=== PATIENT | male | born 1970 | race African-American/Black ===

== ENCOUNTER 2024-05-08 10:01 | Emergency (ER) | payer OTHER ==
[~2024-05-08] VITALS: Ht 185.4 cm; Wt 72.7 kg
[~2024-05-08 10:01] MED LIST: QUET300T2 PO
[2024-05-08 10:05] VITALS: TEMP 98.1
[2024-05-08 10:44] LABS: BASOPHILS % (AUTO) 0.3 % (0.0-2.0); EOSINOPHILS % (AUTO) 0.2 % (1.0-6.0); HEMATOCRIT 44.6 % (41-53); HEMOGLOBIN 14.7 g/dL (13.5-17.5); LYMPHOCYTES # (AUTO) 1.4 K/uL (1.0-4.8); MEAN CORPUSCULAR HEMOGLOBIN 26.1 pg (26.0-34.0); MEAN CORPUSCULAR VOLUME 79 fL (80-100); MONOCYTES # (AUTO) 0.5 K/uL (0.1-1.0); MONOCYTES % (AUTO) 7.3 % (2.0-9.0); NEUTROPHILS # (AUTO) 4.9 K/uL (1.8-7.7); NEUTROPHILS % (AUTO) 72.2 % (40.0-70.0); PLATELET COUNT (AUTO) 144 K/uL (150-450); RED BLOOD CELL COUNT(AUTO) 5.63 MIL/uL (4.50-5.90); RED CELL DISTRIBUTION WIDTH 13.9 % (11.5-14.5); WHITE BLOOD COUNT (AUTO) 6.8 K/uL (4.5-11.0)
[2024-05-08 10:58] LABS: ALBUMIN 4.2 g/dL (3.4-5.0); BILIRUBIN,DIRECT 0.2 mg/dL (0.00-0.20); BILIRUBIN,TOTAL 0.9 mg/dL (0.1-1.0); CALCIUM, TOTAL 11.3 mg/dL (8.8-10.5); CREATININE 2.07 mg/dL (0.60-1.30); MAGNESIUM 2.6 mg/dL (1.80-2.40); POTASSIUM 4.4 mmol/L (3.5-5.1); TOTAL PROTEIN, SERUM 8.7 g/dL (6.4-8.2)
[2024-05-08 10:59] LABS: TROPONIN I-HIGH SENSITIVITY 20 ng/L (<76)
[2024-05-08] MEDS: BACITRACIN 28 GM OINTMENT TP ONE (11:14)
[2024-05-08] MEDS: SODIUM CHLORIDE 0.9% 1,000 ML IV ONE (11:14)
[2024-05-08] MEDS: ACETAMINOPHEN 500 MG TABLET PO ONE (11:14)
[2024-05-08] MEDS: AMIODARONE HCL 150 MG in DEXTROSE 5%-WATER 97 ML IV ONE (11:24)
[2024-05-08] MEDS: INSULIN REGULAR, HUMAN 100 UNITS/ML IVP ONE (11:24)
[2024-05-08] MEDS: AMIODARONE HCL 360 MG in DEXTROSE 5%-WATER 242.8 ML IV ONE (11:35)
[2024-05-08] MEDS: PERTUSS(ACELL),DIPH,TET/PF 0.5 ML SYRINGE [ADULT] IM. ONE (12:02)
[2024-05-08 12:15] LABS: PH,URINE DRUG SCREEN 5.5 (5.0-8.0)
[2024-05-08 12:21] LABS: ALCOHOL, URINE DRUG SCREEN NEGATIVE (NEGATIVE); AMPHET/METH SCREEN,URINE NEGATIVE (NEGATIVE); BARBITURATE SCREEN, URINE NEGATIVE (NEGATIVE); BENZODIAZEPINES SCREEN,URINE NEGATIVE (NEGATIVE); CANNABINOID SCREEN,URINE NEGATIVE (NEGATIVE); COCAINE SCREEN,URINE NEGATIVE (NEGATIVE); METHADONE SCREEN, URINE NEGATIVE (NEGATIVE); OPIATE SCREEN,URINE NEGATIVE (NEGATIVE); PHENCYCLIDINE SCREEN,URINE NEGATIVE (NEGATIVE)
[2024-05-08 12:55] LABS: GLUCOMETER DEV NAME(LOC) ERT.5; GLUCOSE,POINT OF CARE 415 MG/DL (70-110)
[2024-05-08 14:46] VITALS: BP 118/72; PULSE 84; RESP 16
[2024-05-08 14:53] LABS: CALCIUM, TOTAL 9.9 mg/dL (8.8-10.5); CREATININE 1.72 mg/dL (0.60-1.30); POTASSIUM 4.2 mmol/L (3.5-5.1)
[2024-05-08] MEDS ORDERED: AMIODARONE HCL 540 MG in DEXTROSE 5%-WATER 239.2 ML IV ONE (17:00)
[2024-05-09] MEDS ORDERED: AMIODARONE HCL 750 MG in DEXTROSE 5%-WATER 485 ML IV SCH (11:00)
== END 2024-05-08 15:20 | disposition left against medical advice (07) ==
LOC: EMS 11:23
DX: S01.01XA Laceration without foreign body of scalp, initial encounter (principal); R00.0 Tachycardia, unspecified; R73.9 Hyperglycemia, unspecified; R51.9 Headache, unspecified; Z79.899 Other long term (current) drug therapy; W22.8XXA Striking against or struck by other objects, initial encounter; Y93.89 Activity, other specified; Y92.89 Other specified places as the place of occurrence of the external cause; Y99.8 Other external cause status
CPT/HCPCS: 99291; 70450; 96365; 96375; 80048; 80076; 83930; 82009; 82962; 83735; 83880; 84484; 85025; 83935; 72125; 90715; 90471; 12004; 80307; 96368; 36415; 93005; G0480; J0282 ×2; J1815; J7060 ×2; J7030

== ENCOUNTER 2024-05-14 08:00 | Emergency (ER) | payer OTHER ==
[~2024-05-14] VITALS: Ht 182.9 cm; Wt 84.1 kg
[2024-05-14 08:02] VITALS: BP 105/54; PULSE 90; RESP 16; TEMP 98.2
[2024-05-14] MEDS ORDERED: AMLO5TAB66 PO (08:07)
[2024-05-14] MEDS ORDERED: MIRT45TA83 PO (08:07)
[2024-05-14] MEDS ORDERED: METF-446 PO (08:07)
[2024-05-14] MEDS ORDERED: DAPA10TA7 PO (08:07)
[2024-05-14] MEDS ORDERED: OLAN20TA35 PO (08:07)
[2024-05-14] MEDS ORDERED: ATOR40TA71 PO (08:07)
[2024-05-14] MEDS: INSULIN REGULAR, HUMAN 100 UNITS/ML IVP ONE (08:45)
[2024-05-14] MEDS: SODIUM CHLORIDE 0.9% 2,500 ML IV ONE (08:46)
[2024-05-14 09:08] LABS: BASOPHILS % (AUTO) 0.1 % (0.0-2.0); EOSINOPHILS % (AUTO) 0.1 % (1.0-6.0); HEMATOCRIT 46.2 % (41-53); HEMOGLOBIN 14.7 g/dL (13.5-17.5); LYMPHOCYTES # (AUTO) 0.9 K/uL (1.0-4.8); LYMPHOCYTES % (AUTO) 11.5 % (22.0-44.0); MEAN CORPUSCULAR HEMOGLOBIN 26.2 pg (26.0-34.0); MEAN CORPUSCULAR HGB CONC 31.9 G/dL (31.0-37.0); MEAN CORPUSCULAR VOLUME 82 fL (80-100); MONOCYTES # (AUTO) 0.6 K/uL (0.1-1.0); MONOCYTES % (AUTO) 7.9 % (2.0-9.0); NEUTROPHILS # (AUTO) 6.6 K/uL (1.8-7.7); NEUTROPHILS % (AUTO) 80.4 % (40.0-70.0); PLATELET COUNT (AUTO) 159 K/uL (150-450); RED BLOOD CELL COUNT(AUTO) 5.62 MIL/uL (4.50-5.90); RED CELL DISTRIBUTION WIDTH 14.1 % (11.5-14.5); WHITE BLOOD COUNT (AUTO) 8.2 K/uL (4.5-11.0)
[2024-05-14 09:20] LABS: APPEARANCE,URINE CLEAR (CLEAR); BILIRUBIN,URINE NEGATIVE (NEGATIVE); COLOR,URINE COLORLESS (YELLOW); GLUCOSE, URINE (UA) >=1000 mg/dL (NEGATIVE); KETONES,URINE 80-100 mg/dL (NEGATIVE); LEUKOCYTE ESTERASE ,URINE NEGATIVE (NEGATIVE); NITRATE,URINE NEGATIVE (NEGATIVE); OCCULT BLOOD,URINE NEGATIVE (NEGATIVE); PROTEIN,URINE NEGATIVE (NEGATIVE); UROBILINOGEN,URINE <=1.0 mg/dL (<=1.0)
[2024-05-14 09:21] LABS: BACTERIA,URINE None Seen /HPF (None Seen); RBC,URINE None Seen /HPF (0-2); WBC,URINE None Seen /HPF (0-5)
[2024-05-14 09:21] LABS: ACETONE,BLOOD 1:16 (NEGATIVE)
[2024-05-14 09:27] LABS: ANION GAP 35 mmol/L (8-16); CARBON DIOXIDE 11 mmol/L (22-29); CHLORIDE 101 mmol/L (98-107); CREATININE 3.12 mg/dL (0.60-1.30); GLOMERULAR FILTR. RATE CALC 25 mL/min (>60); LIPASE 72 U/L (16-77); SODIUM SERUM 147 mmol/L (136-145); UREA NITROGEN, BLOOD 57 mg/dL (7-18)
[2024-05-14 09:47] LABS: GLUCOSE,RANDOM 529 mg/dL (70-110)
[2024-05-14 09:48] LABS: CALCIUM, TOTAL 10.3 mg/dL (8.8-10.5); LACTIC ACID 4.1 mmol/L (0.4-2.0); POTASSIUM 6.1 mmol/L (3.5-5.1)
[2024-05-14] MEDS: SODIUM CHLORIDE 0.9% 1,000 ML IV ONE (09:48)
[2024-05-14] MEDS ORDERED: DEXTROSE 5%-WATER 1,000 ML IV SCH (10:00)
[2024-05-14] MEDS ORDERED: DEXTROSE 50%-WATER 25 GM/50 ML SYRINGE IVP PRN (10:00)
[2024-05-14] MEDS: INSULIN REGULAR, HUMAN 100 UNITS in SODIUM CHLORIDE 0.9% 99 ML IV PRN (10:27)
[2024-05-14 10:35] LABS: ABG BASE EXCESS -17.3 mmol/L (-2.0-3.0); ABG CARBOXYHEMOGLOBIN 1.3 % (0.0-1.5); ABG HCO3 13.2 mmol/L (22.0-26.0); ABG METHEMOGLOBIN 0.6 % (0.0-1.5); ABG OXYGEN SATURATION 98.5 % (95.0-98.0); ABG OXYHEMOGLOBIN 96.6 % (94.0-100.0); ABG PCO2 21 mmHg (35-45); ABG PH 7.277 (7.35-7.450); ABG TOTAL HEMOGLOBIN 13.9 G/dL (12.0-18.0); PO2, ARTERIAL BG 117.4 mmHg (84.0-92.0); SOURCE, BLOOD GAS ARTERIAL; TEMPERATURE, FAHRENHEIT, BG 98.2 FAHREN (96.0-98.6)
[2024-05-14 10:36] LABS: ABG A-A DIFF O2 7.4 mmHg (10-20.0); ALLEN TEST, BLOOD GAS Positive; O2 DEVICE,BLOOD GAS ROOM AIR (ROOM AIR); SITE, BLOOD GAS LFT RADIAL
[2024-05-14 12:00] LABS: GLUCOMETER DEV NAME(LOC) ER.7; GLUCOSE,POINT OF CARE 530 MG/DL (70-110)
== END 2024-05-14 11:45 | disposition left against medical advice (07) ==
LOC: EMS 08:00
DX: E11.10 Type 2 diabetes mellitus with ketoacidosis without coma (principal); I48.91 Unspecified atrial fibrillation; I48.92 Unspecified atrial flutter; E11.9 Type 2 diabetes mellitus without complications; I10 Essential (primary) hypertension; Z88.8 Allergy status to other drugs, medicaments and biological substances
CPT/HCPCS: 99291; 96360; 96361; 80048; 81001; 82009; 82962 ×2; 83605; 83690; 85025; 36415; 82805; 36600; 93005; 82803; J7060; J7030; J7050; J1815

== ENCOUNTER 2024-05-15 00:47 | Inpatient (IN) | payer OTHER ==
[~2024-05-15] VITALS: Ht 180.3 cm; Wt 82.8 kg
[~2024-05-15 00:47] MED LIST changes: +AMLO5TAB66 PO; +ATOR40TA71 PO; +DAPA10TA7 PO; +METF-446 PO; +MIRT45TA83 PO; +OLAN20TA35 PO
[2024-05-15] MEDS: SODIUM CHLORIDE 0.9% 1,000 ML IV ONE (01:20)
[2024-05-15 01:21] LABS: GLUCOMETER DEV NAME(LOC) ER.7; GLUCOSE,POINT OF CARE 521 MG/DL (70-110)
[2024-05-15] MEDS ORDERED: SODIUM CHLORIDE 0.45% 1,000 ML IV ONE (01:25)
[2024-05-15] MEDS: INSULIN REGULAR, HUMAN 100 UNITS/ML IVP ONE ×2 (01:29→02:31)
[2024-05-15] MEDS ORDERED: SODIUM CHLORIDE 0.45% 1,000 ML IV PRN (01:30)
[2024-05-15] MEDS ORDERED: DEXTROSE 50%-WATER 25 GM/50 ML SYRINGE IVP PRN (01:30)
[2024-05-15 01:32] LABS: BASOPHILS % (AUTO) 0.1 % (0.0-2.0); EOSINOPHILS % (AUTO) 0 % (1.0-6.0); HEMATOCRIT 44.1 % (41-53); HEMOGLOBIN 13.7 g/dL (13.5-17.5); LYMPHOCYTES # (AUTO) 1.2 K/uL (1.0-4.8); LYMPHOCYTES % (AUTO) 9.7 % (22.0-44.0); MEAN CORPUSCULAR HEMOGLOBIN 25.7 pg (26.0-34.0); MEAN CORPUSCULAR HGB CONC 31.1 G/dL (31.0-37.0); MEAN CORPUSCULAR VOLUME 83 fL (80-100); MONOCYTES # (AUTO) 1.2 K/uL (0.1-1.0); MONOCYTES % (AUTO) 9.5 % (2.0-9.0); NEUTROPHILS # (AUTO) 10.1 K/uL (1.8-7.7); NEUTROPHILS % (AUTO) 80.7 % (40.0-70.0); PLATELET COUNT (AUTO) 166 K/uL (150-450); RED BLOOD CELL COUNT(AUTO) 5.34 MIL/uL (4.50-5.90); RED CELL DISTRIBUTION WIDTH 15.2 % (11.5-14.5); WHITE BLOOD COUNT (AUTO) 12.5 K/uL (4.5-11.0)
[2024-05-15] MEDS: INSULIN REGULAR, HUMAN 100 UNITS in SODIUM CHLORIDE 0.9% 99 ML IV PRN (01:37)
[2024-05-15 01:46] LABS: ABG BASE EXCESS -23.5 mmol/L (-2.0-3.0); ABG CARBOXYHEMOGLOBIN 0.5 % (0.0-1.5); ABG METHEMOGLOBIN 0.7 % (0.0-1.5); ABG OXYGEN CONTENT 18.9 mL/dL (15.0-23.0); ABG OXYGEN SATURATION 98.2 % (95.0-98.0); ABG TOTAL HEMOGLOBIN 13.7 G/dL (12.0-18.0); PO2, ARTERIAL BG 127.8 mmHg (84.0-92.0); SOURCE, BLOOD GAS ARTERIAL; TEMPERATURE, FAHRENHEIT, BG 98.2 FAHREN (96.0-98.6)
[2024-05-15 01:47] LABS: ABG HCO3 9.6 mmol/L (22.0-26.0); ABG PCO2 12 mmHg (35-45); ABG PH 7.197 (7.35-7.450); ALLEN TEST, BLOOD GAS POS; SITE, BLOOD GAS RT BRACHIAL
[2024-05-15 01:53] LABS: TROPONIN I-HIGH SENSITIVITY 46 ng/L (<76)
[2024-05-15 01:55] LABS: CALCIUM, TOTAL 9.6 mg/dL (8.8-10.5); CREATININE 3.13 mg/dL (0.60-1.30); POTASSIUM 5.4 mmol/L (3.5-5.1)
[2024-05-15 02:00] LABS: LACTIC ACID 2.7 mmol/L (0.4-2.0)
[2024-05-15] MEDS: SODIUM CHLORIDE 0.9% 1,000 ML IV SCH (02:28)
[2024-05-15] MEDS: SODIUM BICARBONATE [ADULT] 8.4% 50 MEQ/50 ML SYRINGE IVP ONE (02:32)
[2024-05-15 02:33] LABS: APPEARANCE,URINE CLEAR (CLEAR); BILIRUBIN,URINE NEGATIVE (NEGATIVE); COLOR,URINE COLORLESS (YELLOW); GLUCOSE, URINE (UA) >=1000 mg/dL (NEGATIVE); KETONES,URINE =>150 mg/dL (NEGATIVE); LEUKOCYTE ESTERASE ,URINE NEGATIVE (NEGATIVE); NITRATE,URINE NEGATIVE (NEGATIVE); OCCULT BLOOD,URINE NEGATIVE (NEGATIVE); PROTEIN,URINE NEGATIVE (NEGATIVE); SPECIFIC GRAVITIY, URINE 1.027 (1.003-1.030); UROBILINOGEN,URINE <=1.0 mg/dL (<=1.0)
[2024-05-15 02:41] LABS: GLUCOMETER DEV NAME(LOC) ER.7; GLUCOSE,POINT OF CARE 385 MG/DL (70-110)
[2024-05-15] MEDS: PIPERACILLIN/TAZO 3.375 GM/D5W 50 ML IV ONE (02:58)
[2024-05-15 03:00] LABS: BACTERIA,URINE None Seen /HPF (None Seen); RBC,URINE None Seen /HPF (0-2); SQUAMOUS EPITHELIAL CELL,UR None Seen /LPF (None Seen); WBC,URINE None Seen /HPF (0-5)
[2024-05-15] MEDS: POTASSIUM CHL 20 MEQ/0.45% NS 1,000 ML IV PRN (03:37)
[2024-05-15] MEDS: INSULIN REGULAR, HUMAN 100 UNITS/ML IVP PRN (03:50)
[2024-05-15 05:37] LABS: ABG BASE EXCESS -11.9 mmol/L (-2.0-3.0); ABG CARBOXYHEMOGLOBIN 0.5 % (0.0-1.5); ABG HCO3 16.4 mmol/L (22.0-26.0); ABG METHEMOGLOBIN 0.9 % (0.0-1.5); ABG OXYGEN CONTENT 17.9 mL/dL (15.0-23.0); ABG OXYGEN SATURATION 96.7 % (95.0-98.0); ABG OXYHEMOGLOBIN 95.3 % (94.0-100.0); ABG PCO2 26 mmHg (35-45); ABG PH 7.342 (7.35-7.450); ABG TOTAL HEMOGLOBIN 13.3 G/dL (12.0-18.0); PO2, ARTERIAL BG 89.6 mmHg (84.0-92.0); SOURCE, BLOOD GAS ARTERIAL; TEMPERATURE, FAHRENHEIT, BG 98.2 FAHREN (96.0-98.6)
[2024-05-15 05:39] LABS: ALLEN TEST, BLOOD GAS Positive; SITE, BLOOD GAS LFT RADIAL
[2024-05-15] MEDS: DEXTROSE 5%-0.45% SODIUM CHL 1,000 ML IV PRN (05:44)
[2024-05-15 07:21] LABS: ALBUMIN 3.1 g/dL (3.4-5.0); BILIRUBIN,TOTAL 0.5 mg/dL (0.1-1.0); CALCIUM, TOTAL 8.6 mg/dL (8.8-10.5); CREATININE 2.27 mg/dL (0.60-1.30); MAGNESIUM 3.1 mg/dL (1.80-2.40); POTASSIUM 4.4 mmol/L (3.5-5.1); TOTAL PROTEIN, SERUM 6.8 g/dL (6.4-8.2)
[2024-05-15 07:23] LABS: PHOSPHORUS 1.2 mg/dL (2.5-4.9)
[2024-05-15] MEDS: POTASSIUM PHOS,M-BASIC-D-BASIC 30 MMOL in DEXTROSE 5%-WATER 250 ML IV ONE (08:28)
[2024-05-15 08:51] LABS: GLUCOMETER DEV NAME(LOC) ER.7; GLUCOSE,POINT OF CARE 144 MG/DL (70-110)
[2024-05-15 09:45] LABS: GLUCOMETER DEV NAME(LOC) ER.7; GLUCOSE,POINT OF CARE 149 MG/DL (70-110)
[2024-05-15 10:51] LABS: GLUCOMETER DEV NAME(LOC) ER.7; GLUCOSE,POINT OF CARE 151 MG/DL (70-110)
[2024-05-15 11:50] LABS: CALCIUM, TOTAL 8.3 mg/dL (8.8-10.5); CREATININE 1.92 mg/dL (0.60-1.30)
[2024-05-15 11:50] LABS: GLUCOMETER DEV NAME(LOC) ER.7; GLUCOSE,POINT OF CARE 141 MG/DL (70-110)
[2024-05-15 11:56] LABS: POTASSIUM 4.5 mmol/L (3.5-5.1)
[2024-05-15 13:00] LABS: TROPONIN I-HIGH SENSITIVITY 103 ng/L (<76)
[2024-05-15] MEDS: DEXTROSE 5%-WATER 1,000 ML IV PRN (14:37)
[2024-05-15 15:10] LABS: GLUCOMETER DEV NAME(LOC) ER.7; GLUCOSE,POINT OF CARE 147 MG/DL (70-110)
[2024-05-15 15:12] LABS: CALCIUM, TOTAL 8.2 mg/dL (8.8-10.5); CREATININE 1.59 mg/dL (0.60-1.30); POTASSIUM 3.9 mmol/L (3.5-5.1)
[2024-05-15 16:00] VITALS: BP 121/80; PULSE 91; RESP 13; TEMP 98.8
[2024-05-15] MEDS ORDERED: BISACODYL 10 MG RECTAL RECTAL SUPPOSITORY PR PRN (16:15)
[2024-05-15] MEDS ORDERED: IPRATROPIUM BROMIDE 0.5 MG/2.5 ML NEB SOLUTION NEB PRN (16:15)
[2024-05-15] MEDS ORDERED: ZOLPIDEM TARTRATE 5 MG TABLET PO PRN (16:15)
[2024-05-15] MEDS ORDERED: ALBUTEROL SULFATE 2.5 MG/0.5 ML NEB SOLUTION NEB PRN (16:15)
[2024-05-15] MEDS ORDERED: MAGNESIUM HYDROXIDE SUSPENSION 30 ML UDCUP PO PRN (16:15)
[2024-05-15] MEDS ORDERED: HYDROCODONE/ACETAMINOPHEN 5-325 MG TABLET PO PRN (16:15)
[2024-05-15] MEDS ORDERED: MORPHINE SULFATE 2 MG/ML SYRINGE IVP PRN (16:15)
[2024-05-15] MEDS: ONDANSETRON HCL 4 MG/2 ML VIAL IVP PRN (16:33)
[2024-05-15 17:30] LABS: GLUCOMETER DEV NAME(LOC) ICU.S6; GLUCOSE,POINT OF CARE 126 MG/DL (70-110)
[2024-05-15 17:30] LABS: GLUCOMETER DEV NAME(LOC) ICU.S6; GLUCOSE,POINT OF CARE 112 MG/DL (70-110)
[2024-05-15 19:52] LABS: ANION GAP 12 mmol/L (8-16); CALCIUM, TOTAL 8.2 mg/dL (8.8-10.5); CARBON DIOXIDE 24 mmol/L (22-29); CHLORIDE 124 mmol/L (98-107); GLOMERULAR FILTR. RATE CALC > 60 mL/min (>60); GLUCOSE,RANDOM 189 mg/dL (70-110); POTASSIUM 3.8 mmol/L (3.5-5.1); SODIUM SERUM 160 mmol/L (136-145); UREA NITROGEN, BLOOD 19 mg/dL (7-18)
[2024-05-15 20:00] VITALS: BP 117/75; PULSE 83; RESP 17; TEMP 97.9
[2024-05-15 20:20] LABS: GLUCOMETER DEV NAME(LOC) ICU.S6; GLUCOSE,POINT OF CARE 100 MG/DL (70-110)
[2024-05-15 20:56] LABS: GLUCOMETER DEV NAME(LOC) ICU.S6; GLUCOSE,POINT OF CARE 221 MG/DL (70-110)
[2024-05-15] MEDS: OLANZapine 10 MG TABLET PO SCH (21:16)
[2024-05-15] MEDS: ATORVASTATIN CALCIUM 40 MG TABLET PO SCH (21:16)
[2024-05-15] MEDS: MIRTAZAPINE 30 MG TABLET PO SCH (21:16)
[2024-05-15] MEDS: POTASSIUM CHLORIDE 40 MEQ in SODIUM CHLORIDE 0.45% 1,000 ML IV PRN (22:01)
[2024-05-15 23:19] LABS: ANION GAP 7 mmol/L (8-16); CALCIUM, TOTAL 8.2 mg/dL (8.8-10.5); CARBON DIOXIDE 26 mmol/L (22-29); CHLORIDE 122 mmol/L (98-107); CREATININE 1.42 mg/dL (0.60-1.30); GLOMERULAR FILTR. RATE CALC > 60 mL/min (>60); GLUCOSE,RANDOM 205 mg/dL (70-110); POTASSIUM 4.1 mmol/L (3.5-5.1); SODIUM SERUM 155 mmol/L (136-145); UREA NITROGEN, BLOOD 18 mg/dL (7-18)
[2024-05-15 23:25] LABS: GLUCOMETER DEV NAME(LOC) ICUN.5; GLUCOSE,POINT OF CARE 193 MG/DL (70-110)
[2024-05-15 23:25] LABS: GLUCOMETER DEV NAME(LOC) ICUN.5; GLUCOSE,POINT OF CARE 235 MG/DL (70-110)
[2024-05-16] VITALS: BP 130/88; PULSE 77; RESP 14; TEMP 98
[2024-05-16] MEDS: HEPARIN SODIUM,PORCINE 5,000 UNITS/ML VIAL SQ SCH
[2024-05-16 02:06] LABS: GLUCOMETER DEV NAME(LOC) ICUN.5; GLUCOSE,POINT OF CARE 178 MG/DL (70-110)
[2024-05-16 02:06] LABS: GLUCOMETER DEV NAME(LOC) ICUN.5; GLUCOSE,POINT OF CARE 180 MG/DL (70-110)
[2024-05-16 02:06] LABS: GLUCOMETER DEV NAME(LOC) ICUN.5; GLUCOSE,POINT OF CARE 117 MG/DL (70-110)
[2024-05-16 03:24] LABS: ANION GAP 9 mmol/L (8-16); CALCIUM, TOTAL 8.3 mg/dL (8.8-10.5); CARBON DIOXIDE 26 mmol/L (22-29); CHLORIDE 122 mmol/L (98-107); CREATININE 1.32 mg/dL (0.60-1.30); GLOMERULAR FILTR. RATE CALC > 60 mL/min (>60); GLUCOSE,RANDOM 142 mg/dL (70-110); POTASSIUM 3.4 mmol/L (3.5-5.1); SODIUM SERUM 157 mmol/L (136-145); UREA NITROGEN, BLOOD 15 mg/dL (7-18)
[2024-05-16 04:00] VITALS: BP 124/68; PULSE 76; RESP 17; TEMP 98.1
[2024-05-16] MEDS ORDERED: GLUCAGON,HUMAN RECOMBINANT 1 MG VIAL IM PRN (04:15)
[2024-05-16 05:31] LABS: BASOPHILS % (AUTO) 0.1 % (0.0-2.0); EOSINOPHILS % (AUTO) 1.3 % (1.0-6.0); HEMATOCRIT 37.5 % (41-53); LYMPHOCYTES # (AUTO) 1.3 K/uL (1.0-4.8); LYMPHOCYTES % (AUTO) 17.4 % (22.0-44.0); MEAN CORPUSCULAR HEMOGLOBIN 25.8 pg (26.0-34.0); MEAN CORPUSCULAR HGB CONC 31.9 G/dL (31.0-37.0); MEAN CORPUSCULAR VOLUME 81 fL (80-100); MONOCYTES # (AUTO) 0.6 K/uL (0.1-1.0); MONOCYTES % (AUTO) 8.1 % (2.0-9.0); NEUTROPHILS # (AUTO) 5.5 K/uL (1.8-7.7); NEUTROPHILS % (AUTO) 73.1 % (40.0-70.0); PLATELET COUNT (AUTO) 103 K/uL (150-450); RED BLOOD CELL COUNT(AUTO) 4.63 MIL/uL (4.50-5.90); RED CELL DISTRIBUTION WIDTH 14.7 % (11.5-14.5); WHITE BLOOD COUNT (AUTO) 7.5 K/uL (4.5-11.0)
[2024-05-16 05:47] LABS: ALANINE AMINOTRANSFERASE 35 U/L (12-78); ALBUMIN 2.7 g/dL (3.4-5.0); ALKALINE PHOSPHATASE 67 U/L (46-116); ANION GAP 9 mmol/L (8-16); ASPARTATE AMINOTRANSFERASE 65 U/L (15-37); BILIRUBIN,TOTAL 0.4 mg/dL (0.1-1.0); CALCIUM, TOTAL 8.4 mg/dL (8.8-10.5); CARBON DIOXIDE 25 mmol/L (22-29); CHLORIDE 122 mmol/L (98-107); CREATININE 1.22 mg/dL (0.60-1.30); GLOMERULAR FILTR. RATE CALC > 60 mL/min (>60); GLUCOSE,RANDOM 127 mg/dL (70-110); PHOSPHORUS 1.8 mg/dL (2.5-4.9); POTASSIUM 3.5 mmol/L (3.5-5.1); SODIUM SERUM 156 mmol/L (136-145); TOTAL PROTEIN, SERUM 6.1 g/dL (6.4-8.2); UREA NITROGEN, BLOOD 13 mg/dL (7-18)
[2024-05-16] MEDS: INSULIN LISPRO 100 UNITS/ML SQ PRN (06:06)
[2024-05-16 06:42] LABS: GLUCOMETER DEV NAME(LOC) ICUN.5; GLUCOSE,POINT OF CARE 143 MG/DL (70-110)
[2024-05-16 06:42] LABS: GLUCOMETER DEV NAME(LOC) ICUN.5; GLUCOSE,POINT OF CARE 134 MG/DL (70-110)
[2024-05-16 06:45] LABS: GLUCOMETER DEV NAME(LOC) ICUN.5; GLUCOSE,POINT OF CARE 138 MG/DL (70-110)
[2024-05-16 06:46] LABS: GLUCOMETER DEV NAME(LOC) ICU.S6; GLUCOSE,POINT OF CARE 153 MG/DL (70-110)
[2024-05-16 08:00] VITALS: BP 117/70; PULSE 83; RESP 12; TEMP 97.9
[2024-05-16] MEDS: DAPAGLIFLOZIN PROPANEDIOL 5 MG TABLET PO SCH (08:12)
[2024-05-16] MEDS: AmLODIPine BESYLATE 5 MG TABLET PO SCH (08:12)
[2024-05-16] MEDS: PANTOPRAZOLE SODIUM 40 MG DR TABLET PO SCH (08:12)
[2024-05-16 12:00] VITALS: BP 100/78; PULSE 86; RESP 16; TEMP 97.7
[2024-05-16 12:46] LABS: GLUCOMETER DEV NAME(LOC) ICUN.5; GLUCOSE,POINT OF CARE 257 MG/DL (70-110)
[2024-05-16] MEDS: POTASSIUM PHOS,M-BASIC-D-BASIC 30 MMOL in DEXTROSE 5%-WATER 250 ML IV ONE (14:22)
[2024-05-16] MEDS ORDERED: SODIUM CHLORIDE 0.9% 250 ML IV ONE (14:56)
[2024-05-16 16:00] VITALS: BP 118/79; PULSE 75; RESP 8; TEMP 98
[2024-05-16 17:31] LABS: GLUCOMETER DEV NAME(LOC) ICU.S6; GLUCOSE,POINT OF CARE 166 MG/DL (70-110)
[2024-05-16 20:00] VITALS: BP 146/36; PULSE 70; RESP 18; TEMP 98.6
[2024-05-16] MEDS: INSULIN GLARGINE,HUM.REC.ANLOG 100 UNITS/ML SQ SCH (21:02)
[2024-05-16 22:20] LABS: GLUCOMETER DEV NAME(LOC) ICU.S6; GLUCOSE,POINT OF CARE 212 MG/DL (70-110)
[2024-05-17] VITALS: BP 100/63; PULSE 70; RESP 17; TEMP 97.9
[2024-05-17 01:01] LABS: GLUCOMETER DEV NAME(LOC) ICU.S6; GLUCOSE,POINT OF CARE 179 MG/DL (70-110)
[2024-05-17 04:00] VITALS: BP 100/59; PULSE 80; RESP 18; TEMP 97.3
[2024-05-17] MEDS ORDERED: DEXTROSE 50%-WATER 25 GM/50 ML SYRINGE IVP PRN ×2 (05:45)
[2024-05-17 06:11] LABS: GLUCOMETER DEV NAME(LOC) ICU.S6; GLUCOSE,POINT OF CARE 139 MG/DL (70-110)
[2024-05-17 06:13] LABS: BASOPHILS % (AUTO) 0.4 % (0.0-2.0); EOSINOPHILS % (AUTO) 1.9 % (1.0-6.0); HEMATOCRIT 39.5 % (41-53); HEMOGLOBIN 12.9 g/dL (13.5-17.5); LYMPHOCYTES # (AUTO) 1.3 K/uL (1.0-4.8); LYMPHOCYTES % (AUTO) 26.5 % (22.0-44.0); MEAN CORPUSCULAR HEMOGLOBIN 26.2 pg (26.0-34.0); MEAN CORPUSCULAR HGB CONC 32.7 G/dL (31.0-37.0); MEAN CORPUSCULAR VOLUME 80 fL (80-100); MONOCYTES # (AUTO) 0.4 K/uL (0.1-1.0); MONOCYTES % (AUTO) 8.9 % (2.0-9.0); NEUTROPHILS # (AUTO) 3.1 K/uL (1.8-7.7); NEUTROPHILS % (AUTO) 62.3 % (40.0-70.0); PLATELET COUNT (AUTO) 100 K/uL (150-450); RED BLOOD CELL COUNT(AUTO) 4.93 MIL/uL (4.50-5.90); RED CELL DISTRIBUTION WIDTH 14.7 % (11.5-14.5)
[2024-05-17 06:17] LABS: ANION GAP 10 mmol/L (8-16); CALCIUM, TOTAL 8.8 mg/dL (8.8-10.5); CARBON DIOXIDE 26 mmol/L (22-29); CHLORIDE 114 mmol/L (98-107); CREATININE 1.09 mg/dL (0.60-1.30); GLOMERULAR FILTR. RATE CALC > 60 mL/min (>60); GLUCOSE,RANDOM 114 mg/dL (70-110); PHOSPHORUS 3.1 mg/dL (2.5-4.9); POTASSIUM 3.7 mmol/L (3.5-5.1); SODIUM SERUM 150 mmol/L (136-145); UREA NITROGEN, BLOOD 15 mg/dL (7-18)
[2024-05-17 08:00] VITALS: BP 120/69; PULSE 91; RESP 15; TEMP 97.9
[2024-05-17] MEDS: INSULIN GLARGINE,HUM.REC.ANLOG 100 UNITS/ML SQ SCH (08:32)
[2024-05-17 08:45] LABS: GLUCOMETER DEV NAME(LOC) ICU.S6; GLUCOSE,POINT OF CARE 125 MG/DL (70-110)
[2024-05-17] MEDS: SODIUM CHLORIDE 0.45% 1,000 ML IV ONE (09:11)
[2024-05-17 12:00] VITALS: BP 128/85; PULSE 88; RESP 7; TEMP 98.2
[2024-05-17 15:30] VITALS: BP 106/64; PULSE 81; RESP 16; TEMP 97.2
[2024-05-17] MEDS: ACETAMINOPHEN 325 MG TABLET PO PRN (16:53)
[2024-05-17 18:16] LABS: GLUCOMETER DEV NAME(LOC) 6S.2; GLUCOSE,POINT OF CARE 180 MG/DL (70-110)
[2024-05-17 19:40] VITALS: BP 119/63; PULSE 57; RESP 18; TEMP 98.1
[2024-05-18 00:21] LABS: GLUCOMETER DEV NAME(LOC) 4E.2; GLUCOSE,POINT OF CARE 202 MG/DL (70-110)
[2024-05-18 04:30] VITALS: BP 111/72; PULSE 77; RESP 18; TEMP 98.5
[2024-05-18 08:00] VITALS: BP 115/74; PULSE 64; RESP 18; TEMP 98.1
[2024-05-18 08:06] LABS: GLUCOMETER DEV NAME(LOC) 6S.2; GLUCOSE,POINT OF CARE 305 MG/DL (70-110)
[2024-05-18] MEDS ORDERED: INSLAN SQ ×2 (10:55→10:56)
[2024-05-18 11:54] LABS: ANION GAP 11 mmol/L (8-16); CALCIUM, TOTAL 9.4 mg/dL (8.8-10.5); CARBON DIOXIDE 24 mmol/L (22-29); CHLORIDE 107 mmol/L (98-107); CREATININE 1.08 mg/dL (0.60-1.30); GLOMERULAR FILTR. RATE CALC > 60 mL/min (>60); GLUCOSE,RANDOM 242 mg/dL (70-110); SODIUM SERUM 142 mmol/L (136-145); UREA NITROGEN, BLOOD 19 mg/dL (7-18)
[2024-05-18 13:01] LABS: GLUCOMETER DEV NAME(LOC) 4E.2; GLUCOSE,POINT OF CARE 235 MG/DL (70-110)
[2024-05-18 13:01] LABS: GLUCOMETER DEV NAME(LOC) 4E.2; GLUCOSE,POINT OF CARE 260 MG/DL (70-110)
[2024-05-18 15:15] VITALS: BP 107/64; PULSE 84; RESP 18; TEMP 97.1
[2024-05-18 20:10] VITALS: BP 117/58; PULSE 84; RESP 18; TEMP 98.2
[2024-05-18] MEDS: INSULIN LISPRO 100 UNITS/ML SQ PRN (20:27)
[2024-05-18 20:35] LABS: GLUCOMETER DEV NAME(LOC) 6S.2; GLUCOSE,POINT OF CARE 165 MG/DL (70-110)
[2024-05-19 03:37] VITALS: BP 105/66; PULSE 81; RESP 18; TEMP 97.6
[2024-05-19 04:46] LABS: GLUCOMETER DEV NAME(LOC) 6N.2B; GLUCOSE,POINT OF CARE 294 MG/DL (70-110)
[2024-05-19 06:21] LABS: GLUCOMETER DEV NAME(LOC) 4E.2; GLUCOSE,POINT OF CARE 297 MG/DL (70-110)
[2024-05-19 07:22] LABS: BASOPHILS % (AUTO) 0.1 % (0.0-2.0); EOSINOPHILS % (AUTO) 1.2 % (1.0-6.0); HEMATOCRIT 38.3 % (41-53); HEMOGLOBIN 12.6 g/dL (13.5-17.5); LYMPHOCYTES # (AUTO) 0.9 K/uL (1.0-4.8); LYMPHOCYTES % (AUTO) 23.1 % (22.0-44.0); MEAN CORPUSCULAR HEMOGLOBIN 26.2 pg (26.0-34.0); MEAN CORPUSCULAR HGB CONC 32.8 G/dL (31.0-37.0); MEAN CORPUSCULAR VOLUME 80 fL (80-100); MONOCYTES # (AUTO) 0.4 K/uL (0.1-1.0); MONOCYTES % (AUTO) 10.2 % (2.0-9.0); NEUTROPHILS # (AUTO) 2.5 K/uL (1.8-7.7); NEUTROPHILS % (AUTO) 65.4 % (40.0-70.0); PLATELET COUNT (AUTO) 100 K/uL (150-450); RED CELL DISTRIBUTION WIDTH 14.2 % (11.5-14.5); WHITE BLOOD COUNT (AUTO) 3.9 K/uL (4.5-11.0)
[2024-05-19 07:37] LABS: ANION GAP 10 mmol/L (8-16); CALCIUM, TOTAL 9.1 mg/dL (8.8-10.5); CARBON DIOXIDE 25 mmol/L (22-29); CHLORIDE 106 mmol/L (98-107); CREATININE 1.09 mg/dL (0.60-1.30); GLOMERULAR FILTR. RATE CALC > 60 mL/min (>60); GLUCOSE,RANDOM 283 mg/dL (70-110); POTASSIUM 3.6 mmol/L (3.5-5.1); SODIUM SERUM 141 mmol/L (136-145); UREA NITROGEN, BLOOD 16 mg/dL (7-18)
[2024-05-19 08:10] VITALS: BP 113/68; PULSE 85; RESP 19; TEMP 97.4
[2024-05-19 12:17] VITALS: BP 103/64; PULSE 84; RESP 18; TEMP 98.1; O2SAT 100
[2024-05-19 16:15] VITALS: BP 105/60; PULSE 84; RESP 20; TEMP 97.2
[2024-05-19 17:46] LABS: GLUCOMETER DEV NAME(LOC) 6N.2B; GLUCOSE,POINT OF CARE 267 MG/DL (70-110)
[2024-05-19 17:46] LABS: GLUCOMETER DEV NAME(LOC) 6S.2; GLUCOSE,POINT OF CARE 209 MG/DL (70-110)
[2024-05-19 20:27] VITALS: BP 113/60; PULSE 96; RESP 20; TEMP 98.1
[2024-05-19 22:26] VITALS: BP 113/60; PULSE 96; RESP 20; TEMP 98.1; O2SAT 97
[2024-05-20 04:29] VITALS: BP 132/70; PULSE 82; RESP 20; TEMP 98
[2024-05-20 04:57] VITALS: BP 116/70; PULSE 96; RESP 20; TEMP 97.2
[2024-05-20 06:06] LABS: GLUCOMETER DEV NAME(LOC) 6N.2B; GLUCOSE,POINT OF CARE 395 MG/DL (70-110)
[2024-05-20 08:29] VITALS: BP 100/57; PULSE 95; RESP 20; TEMP 97.8
[2024-05-20 08:30] VITALS: BP 112/67; PULSE 92
[2024-05-20 08:36] LABS: GLUCOMETER DEV NAME(LOC) 4E.2; GLUCOSE,POINT OF CARE 201 MG/DL (70-110)
[2024-05-20] MEDS: INSULIN GLARGINE,HUM.REC.ANLOG 100 UNITS/ML SQ SCH (08:57)
[2024-05-20 10:54] VITALS: BP 112/67; PULSE 92; RESP 20; TEMP 97.8; O2SAT 99
[2024-05-20 12:30] LABS: GLUCOMETER DEV NAME(LOC) 6N.2B; GLUCOSE,POINT OF CARE 278 MG/DL (70-110)
[2024-05-20] MEDS ORDERED: HEPA500018 SQ (12:31)
[2024-05-20] MEDS ORDERED: PANT-31 PO (12:33)
[2024-05-20] MEDS ORDERED: ACET-2247 PO (12:34)
[2024-05-20] MEDS ORDERED: ALBU2.5V39 NEB (12:35)
[2024-05-20] MEDS ORDERED: BISA-151 PO (12:35)
[2024-05-20] MEDS ORDERED: MAGN-169 PO (12:36)
[2024-05-20] MEDS ORDERED: INSLAN SQ (12:37)
[2024-05-20 21:41] LABS: GLUCOMETER DEV NAME(LOC) 6S.2; GLUCOSE,POINT OF CARE 279 MG/DL (70-110)
== END 2024-05-20 18:45 | DRG 420 ==
LOC: EMS 00:48 → EDH 04:12 → ICU 14:10 → 6S 05-17 14:45
PROVIDERS: ADMIT Hospitalist; ATTEND Hospitalist
DX: E11.10 Type 2 diabetes mellitus with ketoacidosis without coma (principal); D69.6 Thrombocytopenia, unspecified; E87.0 Hyperosmolality and hypernatremia; N17.9 Acute kidney failure, unspecified; E83.39 Other disorders of phosphorus metabolism; F20.0 Paranoid schizophrenia; E86.0 Dehydration; D72.829 Elevated white blood cell count, unspecified; I10 Essential (primary) hypertension; F43.10 Post-traumatic stress disorder, unspecified
CPT/HCPCS: 36600; 71045; 80048; 80053; 81001; 82009; 82550; 82805; 82962; 83605; 83735; 83880; 83930; 84100; 84484; 85025; 87040; 87081; 87481; 93005; 97162; 97530; 99291; J1644; J1815; J2405; J2543; J3480; J3490; J7050; J7060; Q9967; 36415-L1; 36415-TC